=== PATIENT | male | born 1970 | race Caucasian/White ===

== ENCOUNTER → 2018-05-27 09:42 | Outpatient (CLI) | payer BC, SELFPAY | PROVIDERS: Family Provider Family Medicine; PCP Family Medicine; Referring Provider Nurse Practitioner Family; Visit Provider Nurse Practitioner Family | DX: R39.15 Urgency of urination (principal) | CPT/HCPCS: 87077; 87086; 87088; 87186 ==

== ENCOUNTER → 2018-06-17 09:49 | Outpatient (CLI) | payer BC, SELFPAY ==
[2018-06-17 10:46] LABS: Hemoglobin A1c 6.4 % (4.2-6.3)
[2018-06-17 10:51] LABS: Anion Gap 7 (5-15); BUN 12 mg/dL (7-18); BUN/Creat Ratio 12.7 RATIO (10-20); Calcium,Total 8.8 mg/dL (8.5-10.1); Chloride 107 mmol/L (98-107); Cholesterol 164 mg/dL (200); Creatinine, Serum 0.95 mg/dL (0.70-1.30); EST Glomerular Filtration Rate 91 mL/min (>60); Est Glom Filt Rate - Afr Amer 110 mL/min (>60); Glucose 128 mg/dL (74-106); High Density Lipoprotein 27 mg/dL; Potassium 3.7 mmol/L (3.5-5.1); Sodium Level 139 mmol/L (136-145); Triglycerides 256 mg/dL; Very Low Density Lipoprotein 51 mg/dL (5-40)
== END ==
PROVIDERS: Family Provider Family Medicine; PCP Family Medicine; Referring Provider Family Medicine; Visit Provider Family Medicine
DX: R63.1 Polydipsia (principal)
CPT/HCPCS: 36415; 80048; 80061; 83036

== ENCOUNTER 2020-04-01 14:48 | Inpatient (IN) | payer OTHER, SELFPAY ==
[2020-04-01] VITALS (10 sets, daily range): BP systolic 134–163; BP diastolic 76–107; PULSE 106–126; RESP 16–30; TEMP 36.4–39; O2SAT 94–99; BMI 34.7; BMI 34.9; BMI 35.0
--- NOTE | 2020-04-01 15:57 | CT_ITS ---
STUDY: CT ABDOMEN AND PELVIS WITHOUT CONTRAST REASON FOR EXAM: Male, 49 years old. LEFT FLANK PAIN AND IN LT TESTICLE X 1 MONTH RADIATION DOSAGE (If Supplied By Facility): CTDIvol = ( 15.95 ) mGy, DLP = ( 920.77 ) mGycm TECHNIQUE: Transaxial images were obtained from the dome of the diaphragm to the symphysis pubis without oral contrast, and without intravenous contrast. Sagittal and coronal images were reconstructed. Individualized dose optimization techniques were used for this CT. COMPARISON: None. FINDINGS: The visualized lung bases are unremarkable. The visualized portions of the heart are within normal limits. There is decreased attenuation of the liver consistent with steatosis. There is non-visualization of the gallbladder, which may be secondary to either contraction or a prior cholecystectomy. There is mild splenomegaly. Normal pancreas. Normal bilateral adrenal glands. Normal right kidney. 4 cm exophytic cyst in the midsection left kidney. 4 mm obstructing stone of the mid left ureter with mild ureteral dilatation, hydronephrosis, and perinephric edema. Normal visualized stomach. Normal small intestine. Normal colon. There are surgical clips in the region of the appendix consistent with a prior appendectomy. Normal abdominal aorta. Normal inferior vena cava. Normal retroperitoneum. Normal urinary bladder. There is a left-sided inguinal hernia containing adipose tissue. Normal osseous structures. CT/Abdomen/Pelvis without Cont IMPRESSION: 1. 4 mm obstructing stone of the mid left ureter with mild ureteral dilatation and hydronephrosis and perinephric edema. 2. Fatty infiltration liver. 3. Mild splenomegaly. Electronically Signed: Eran Thompson MD at 16:54 EST Tel , Service support ,
--- NOTE | 2020-04-01 15:58 | ED.DCSUM_ITS ---
History of Present Illness Chief Complaint: Flank Pain Informant: Patient Narrative: 49-year-old male presenting with bilateral flank pain and dark urine. Patient states that he has had this for about a year. It comes and goes. He states he drinks a lot of water and urinates a lot but it is still dark. He states it goes right through him. He is not had fever, chills, nausea, vomiting. He does state that he has a focal area of central abdominal tenderness. He states his only medical problem is hypertension. He stopped taking his blood pressure meds because he stated it made him groggy. Past Medical History - Allergies and Home Meds Allergies/Adverse Reactions: Allergies No Known Allergies Allergy (Verified 04/01/20 14:52) Primary Care Physician: Martin Gutierrez MD [Primary Care Provider] - Past Medical History: - - Hypertension Surgical History: noncontributory Lives: Spouse/ Significant Other Smoking Status: Unknown if ever smoked Alcohol: None Drugs: None Review of Systems General: Denies: Chills, Fever, Sweats Eyes: Denies: Visual changes - bilaterally, Diplopia ENT: Denies: Rhinorrhea, Sore throat Cardiovascular: Denies: Chest pain, Palpitations Respiratory: Denies: Dyspnea, Cough, Dyspnea on exertion Gastrointestinal: Reports: Abdominal pain. Denies: Nausea, Vomiting, Diarrhea, Constipation Genitourinary: Reports: Hematuria, Frequency, - - Dark urine. Musculoskeletal: Denies: Myalgias, Arthralgias Skin: Denies: Rash, Abscess Neurological: Denies: Headache, Parasthesia, Numbness Psych: Denies: Depression, Anxiety Endocrine: Reports: Polyuria, Polydipsia Physical Exam Vital Signs/Narrative: Vital Signs Temp Pulse Resp BP Pulse Ox 04/01/20 14:49 97.5 F L 126 H 18 161/107 H 98 General: Obese, No Acute Distress Head: Normocephalic, Atraumatic Eyes: Perrl, EOMI ENT: Moist mucous membranes, No rhinorrhea Cardiovascular: Regular rate, Regular rhythm Respiratory: No distress, CTA bilaterally Abdomen: Soft, Tender - Vasu in the central portion of the abdomen. Abdomen is nonperitoneal. Back: Negative for: CVA tenderness, Spinal tenderness Extremities: Nontender, No edema Skin: Normal color, No rash. Negative for: Cyanosis, Diaphoresis Neurological: Alert, Oriented x3, Cranial nerves II-XII grossly intact Psychological: Normal affect, Normal Mood Diagnostic/Tx/Re-eval Clinical Impression(s) from Imaging Studies Abdomen/Pelvis CT 04/01/20 15:57 IMPRESSION: 1. 4 mm obstructing stone of the mid left ureter with mild ureteral dilatation and hydronephrosis and perinephric edema. 2. Fatty infiltration liver. 3. Mild splenomegaly. Electronically Signed: Eran Thompson MD at 16:54 EST Tel , Service support , Laboratory Data 04/01/20 04/01/20 04/01/20 16:15 16:15 16:15 WBC 19.2 H RBC 4.77 Hgb 14.9 Hct 42.5 MCV 89.1 MCH 31.2 MCHC 35.1 RDW Std Deviation 36.9 RDW Coeff of Akil 11.6 Plt Count 194 MPV 9.6 Immature Gran % (Auto) 0.600 Neut % (Auto) 85.6 H Lymph % (Auto) 6.5 L Jenkins % (Auto) 7.1 Eos % (Auto) 0.0 Baso % (Auto) 0.2 Absolute Neuts (auto) 16.4 H Absolute Lymphs (auto) 1.24 Nucleated RBC % 0 Sodium 135 L Potassium 3.2 L Chloride 101 Carbon Dioxide 25.0 Anion Gap 9 BUN 14 Creatinine 1.35 H Estim Creat Clear Calc 74.25 Est GFR (MDRD) Af Amer 73 Est GFR (MDRD) Non-Af 60 BUN/Creatinine Ratio 10.4 Glucose 157 H Calcium 8.8 Magnesium 1.8 Total Bilirubin 3.80 H AST 9 L ALT 23 Alkaline Phosphatase 64 Total Protein 7.2 Albumin 3.6 Globulin 3.6 Albumin/Globulin Ratio 1.0 Urine Color Urine Clarity Urine pH Ur Specific [place] Urine Protein Urine Glucose (UA) Urine Ketones Urine Occult Blood Urine Nitrite Urine Bilirubin Urine Urobilinogen Ur Leukocyte Esterase Urine RBC Urine WBC Ur Squamous Epith Cells Amorphous Sediment Urine Bacteria Urine Mucus Acetone Level NEGATIVE 04/01/20 16:15 WBC RBC Hgb Hct MCV MCH MCHC RDW Std Deviation RDW Coeff of Akil Plt Count MPV Immature Gran % (Auto) Neut % (Auto) Lymph % (Auto) Jenkins % (Auto) Eos % (Auto) Baso % (Auto) Absolute Neuts (auto) Absolute Lymphs (auto) Nucleated RBC % Sodium Potassium Chloride Carbon Dioxide Anion Gap BUN Creatinine Estim Creat Clear Calc Est GFR (MDRD) Af Amer Est GFR (MDRD) Non-Af BUN/Creatinine Ratio Glucose Calcium Magnesium Total Bilirubin AST ALT Alkaline Phosphatase Total Protein Albumin Globulin Albumin/Globulin Ratio Urine Color Yellow Urine Clarity Cloudy Urine pH 6.0 Ur Specific [place] 1.015 Urine Protein 30 H Urine Glucose (UA) Normal Urine Ketones 15 H Urine Occult Blood 25 H Urine Nitrite Negative Urine Bilirubin 1 H Urine Urobilinogen 4 H Ur Leukocyte Esterase 500 H Urine RBC 0-5 SEEN Urine WBC 50-100 SEEN Ur Squamous Epith Cells 0-5 SEEN Amorphous Sediment 1+ URATE Urine Bacteria 3+ Urine Mucus 0 SEEN Acetone Level - Medical Decision Making Patient presents today with bilateral flank pain and polyuria polydipsia. Patient states that this is been an ongoing problem for a year but is worsened over the last 3 months. Patient states his urine is dark as well. He denies dysuria. Patient today was given IV fluids had lab work drawn which shows a leukocytosis of 20,000. His vitals are stable except for a slight tachycardia. Patient reported a fever from urgent care prior to arrival of 101 ?F however he does not have a fever here and he has not taken anything for pain or fever. Patient's renal function seems to be okay. Urinalysis shows UTI. CT of the abdomen pelvis without contrast shows a 4 mm ureteral stone. Urine was cultured. Patient was given a gram Rocephin in the ED. Patient will be signed out to incoming ED physician who will discuss pt case with Dr. Jang to determine the need for admission versus close follow-up outpatient. Impression: 1. Bilateral flank pain 2. Left ureteral stone 4 mm 3. UTI 4. Leukocytosis ED Disposition - Plan for ED Patient: Referrals: Martin Gutierrez MD [Primary Care Provider] -
[2020-04-01] MEDS: 0.9% Normal Saline 1,000 ML 999 ML IV (16:21)
[2020-04-01 16:24] LABS: Mucous, Urine 0 SEEN /hpf (<or=2+)
[2020-04-01 16:26] LABS: Absolute Lymphocyte Count 1.24 X10^3/uL (0.83-4.51); Absolute Neutrophil Count 16.4 X10^3/uL (2.0-7.7); Basophil# 0.03 X10^3/uL; Basophil% 0.2 % (0-1); Hematocrit 42.5 % (40-54); Hemoglobin 14.9 g/dL (13.0-16.5); Lymphocyte # 1.24 X10^3/ul (4.0); Lymphocyte % 6.5 % (19-41); Mean Corp Hgb Conc 35.1 g/dL (32-36); Mean Corpuscular Hgb 31.2 pg (27.0-32.0); Mean Corpuscular Volume 89.1 fL (80-94); Mean Platelet Vol. 9.6 fl (6.2-12.0); Monocyte# 1.36 X10^3/uL; Monocyte% 7.1 % (0-10); NRBC Flagged by Analyzer 0 % (0-5); Neutrophil # 16.42 X10^3/uL (2.7-7.7); Neutrophil % 85.6 % (47-70); Platelet Count 194 K/mm3 (150-450); RBC Distribution Width CV 11.6 % (11.6-14.6); RBC Distribution Width SD 36.9 fl (35.1-43.9); Red Blood Count 4.77 M/mm3 (4.6-6.2); White Blood Count 19.2 K/mm3 (4.4-11.0)
[2020-04-01 16:33] LABS: Color, Urine Yellow (Yellow); Glucose, Dipstick Normal (Normal); Ketone-Dipstick 15 mg/dl (Negative); Leukocyte Esterase-Dipstick 500 /ul (Negative); Nitrite-Dipstick Negative (Negative); Occult Blood-Urine 25 /ul (Negative); Protein-Dipstick 30 mg/dl (Negative); Specific Gravity, Urine 1.015 (1.002-1.030); Urine Clarity Cloudy (Clear); Urine Urobilinogen 4 mg/dl (Normal)
[2020-04-01 16:50] LABS: AST(SGOT) 9 U/L (15-37); Alanine Aminotransfer ALT/SGPT 23 U/L (16-61); Albumin, Serum 3.6 g/dL (3.2-5.0); Alkaline Phosphatase 64 U/L (45-117); Anion Gap 9 (5-15); BUN 14 mg/dL (7-18); BUN/Creat Ratio 10.4 RATIO (10-20); Calcium,Total 8.8 mg/dL (8.5-10.1); Chloride 101 mmol/L (98-107); Creatinine, Serum 1.35 mg/dL (0.70-1.30); EST Glomerular Filtration Rate 60 mL/min (>60); Est Glom Filt Rate - Afr Amer 73 mL/min (>60); Estimated Creatinine Clearance 74.25 ml/min; Globulin 3.6 g/dL (2.2-4.2); Glucose 157 mg/dL (74-106); Magnesium 1.8 mg/dL (1.6-2.6); Potassium 3.2 mmol/L (3.5-5.1); Protein, Total 7.2 g/dL (6.4-8.2); Sodium Level 135 mmol/L (136-145)
[2020-04-01 17:08] LABS: Urine Bilirubin Dipstick 1 mg/dL (Negative)
[2020-04-01 17:15] LABS: Bacteria 3+ /hpf (None Seen); Red Blood Cells-Urine 0-5 SEEN /hpf (0-5); Squamous Epithelial Cells - UA 0-5 SEEN /hpf (0-5); White Blood Cells 50-100 SEEN /hpf (0-5)
[2020-04-01 17:16] LABS: Amorphous Sediment 1+ URATE
[2020-04-01] MEDS: Ceftriaxone 1 GM/50 ML BAG IV (19:24)
[2020-04-01 19:37] LABS: Lactic Acid 1.5 mmol/L (0.4-1.9)
--- NOTE | 2020-04-01 20:43 | HP.PCM_ITS ---
Problem List (1) Uncontrolled hypertension Status: Acute (2) Acute kidney injury Status: Acute (3) UTI (urinary tract infection) Status: Acute Qualifiers: Urinary tract infection type: site unspecified Hematuria presence: without hematuria Qualified Code(s): N39.0 - Urinary tract infection, site not specified (4) Kidney stone Status: Acute (5) Hypokalemia Status: Acute (6) Hypomagnesemia Status: Acute (7) Hyponatremia Status: Acute (8) Hypertension Status: Chronic Qualifiers: Hypertension type: essential hypertension Qualified Code(s): I10 - Essential (primary) hypertension History of Present Illness Date of Admission: 04/01/20 Chief Complaint: Fever, abdominal pain, flank pain - 3 days The patient is a 49 year old M with past medical history of hypertension, noncompliant with medications comes in with complaints of bilateral flank pain, fever and dark urine. Patient gives a story of having bilateral flank pain ongoing for about 2 years. It comes and goes. His urine has remained dark. He has been persistently drinking water but feels 'it goes right through him'. In the last 3 days, he has had persistent abdominal discomfort, worse in the left upper quadrant, involvement of bilateral flanks. He has some subjective fever, no nausea or vomiting or diarrhea. He describes his pain as dull, constant, with. Of waxing and waning but not completely gone. He denies any radiation of the pain. He denies any aggravating or relieving factors. Vitals in the ED showed temperature of 97.5F, heart rate 126, blood pressure 161/107, respiratory rate was 18, SPO2 was 98% on room air. WBC count is 19.2, hemoglobin of 14.9, platelet count 194, sodium 135, potassium 3.2, chloride 101, bicarbonate 25, BUN 14, creatinine 1.35, baseline creatinine 0.95, lactic acid 1.5, magnesium 1.8. UA is cloudy, ketones 15, occult blood 25, leukocyte Estrace 500, WBC count 50-100, 3+ bacteria. Acetone negative. CT of the abdomen and pelvis shows a 4 mm obstructing stone of the mid left ureter with mild ureteral dilatation hydronephrosis and perinephric edema, fatty infiltration of the liver, mild splenomegaly. Past Medical History Past Medical History (Chronic Problems): Chronic Problems Hypertension (Chronic) Allergies No Known Allergies Allergy (Verified 04/01/20 14:52) Home Medications: Ambulatory Orders Medication Instructions Recorded NK 04/01/20 Surgical History: appendectomy, cholecystectomy, herniorrhaphy - left inguinal Psychiatric History: No pertinent psych hx Lives: Spouse/ Significant Other Smoking Status: Unknown if ever smoked Tobacco Use: Non-smoker Alcohol: None Drugs: None - *Family History Maternal History Items: Unknown Paternal History Items: Unknown Review of Systems Constitutional: Reports: Chills, Fever, Malaise, Weakness, Fatigue. Denies: N ight Sweats, Weight Change Eyes: Denies: Blurred vision, Cataracts, Conjunctivae Inflammation, Double vision, Pain, Redness, Vision Change HEENT: Denies: Difficulty Hearing, Difficulty Swallowing, Head Aches, Hearing Changes, Sinus Congestion, Sinus Drainage Cardiovascular: Denies: Chest Pain, Claudication, Orthopnea, Palpitations, Paroxysmal Noc. Dyspnea Respiratory: Denies: Cough, Hemoptysis, Shortness of breath at rest, Shortness of breath upon exertion, Sputum production Gastrointestinal: Reports: Abdominal Pain. Denies: Constipation, Diarrhea, Dyspepsia, Hematemesis, Hematochezia, Nausea, Vomiting Genitourinary: Reports: Dysuria, Frequency. Denies: Incontinence, Nocturia, Urgency Musculoskeletal: Denies: Joint Pain, Joint stiffness, Joint swelling, Joint Tenderness Skin: Denies: Rash, Wounds Neurological: Denies: Numbness, Tingling, Focal weakness Psychiatric: Denies: Anxiety, Depression, Homicidal Ideations, Suicidal Ideations Hematologic/ Lymphatic: Denies: Easy Bruising, Easy Bleeding VTE Information - Inpt Only VTE Present on Admission: No VTE Pharm Prophylaxis ordered?: Yes Patient Problems: Active and Suspected Problems Uncontrolled hypertension (Acute) Acute kidney injury (Acute) UTI (urinary tract infection) (Acute) Kidney stone (Acute) Hypokalemia (Acute) Hypomagnesemia (Acute) Hyponatremia (Acute) - Physical Exam Vitals/I&O's: Vital Signs Temp Pulse Resp BP Pulse Ox 100.5 F H 119 H 20 H 163/99 H 97 04/01/20 20:00 04/01/20 20:00 04/01/20 20:00 04/01/20 20:00 04/01/20 20:00 Oxygen Delivery Method Room Air Weight: 116.12 kg Body Mass Index (BMI) 34.7 Finger Stick Blood Glucose 170 Intake and Output for Last 24 Hours 03/30/20 03/31/20 04/01/20 23:59 23:59 23:59 Intake Total 999 / 999 Balance 999 / 999 General: Alert, Oriented x3, Cooperative, - - In mild distress HEENT: Atraumatic, PERRLA, EOMI, Normocephalic Oral: Dry Mucosa Neck: Supple Lungs: Clear to auscultation, Normal air movement Cardiovascular: Regular rate, Regular Rhythm, Normal S1, Normal S2, Tachycardic Abdomen: Bowel Sounds Present, Soft, Non-Distended, No Hepato-splenomegaly, Hypoactive Bowel Sounds, Tender - Over the bilateral flank region, worse in the left upper quadrant Extremities: No edema Skin: No rashes Musculoskeletal: No Tenderness to Palpation of Joints or Extremities Lymphatic: No Cervical, Supraclavicular, or Inguinal Adenopathy Neurological: Cranial nerves II-XII grossly intact, Neuro grossly intact Psych/Mental Status: Normal Affect, Appropriate Laboratory Results 04/01/20 16:15: WBC 19.2 H, RBC 4.77, Hgb 14.9, Hct 42.5, MCV 89.1, MCH 31.2, M CHC 35.1, RDW Std Deviation 36.9, RDW Coeff of Akil 11.6, Plt Count 194, MPV 9.6, Immature Gran % (Auto) 0.600, Neut % (Auto) 85.6 H, Lymph % (Auto) 6.5 L, Wheeler % (Auto) 7.1, Eos % (Auto) 0.0, Baso % (Auto) 0.2, Absolute Neuts (auto) 16.4 H, Absolute Lymphs (auto) 1.24, Nucleated RBC % 0 04/01/20 16:15: Sodium 135 L, Potassium 3.2 L, Chloride 101, Carbon Dioxide 25.0, Anion Gap 9, BUN 14, Creatinine 1.35 H, Estim Creat Clear Calc 74.25, Est GFR (MDRD) Af Amer 73, Est GFR (MDRD) Non-Af 60, BUN/Creatinine Ratio 10.4, Glucose 157 H, Calcium 8.8, Magnesium 1.8, Total Bilirubin 3.80 H, AST 9 L, ALT 23, Alkaline Phosphatase 64, Total Protein 7.2, Albumin 3.6, Globulin 3.6, Albumin/Globulin Ratio 1.0 04/01/20 16:15: Acetone Level NEGATIVE 04/01/20 16:15: Urine Color Yellow, Urine Clarity Cloudy, Urine pH 6.0, Ur Specific [place] 1.015, Urine Protein 30 H, Urine Glucose (UA) Normal, Urine Ketones 15 H, Urine Occult Blood 25 H, Urine Nitrite Negative, Urine Bilirubin 1 H, Urine Urobilinogen 4 H, Ur Leukocyte Esterase 500 H, Urine RBC 0-5 SEEN, Urine WBC 50-100 SEEN, Ur Squamous Epith Cells 0-5 SEEN, Amorphous Sediment 1+ URATE, Urine Bacteria 3+, Urine Mucus 0 SEEN 04/01/20 18:50: Lactic Acid 1.5 Current Medications Sodium Chloride () 1,000 mls @ 150 mls/hr IV .Q6H40M [facility] Assessment/Plan All Active Problems Uncontrolled hypertension (Acute) Acute kidney injury (Acute) UTI (urinary tract infection) (Acute) Kidney stone (Acute) Hypokalemia (Acute) Hypomagnesemia (Acute) Hyponatremia (Acute) 1. Severe sepsis secondary to acute complicated UTI(patient with fever, tachycardia, leukocytosis, RAYMOND) Started on IV fluids and IV ceftriaxone Blood and urine cultures pending We will continue same 2. Acute kidney stone, likely infected, seen on CT of the abdomen and pelvis Left 4 mm obstructing stone of the mid left ureter with mild ureteric dilatation/hydronephrosis/perinephric edema Urology consulted from the ED Continue with pain medications 3. Acute kidney injury, post renal from obstructing stone Baseline creatinine less than 1, admitted creatinine 1.35 On IV fluids, urology consulted 4. Hypertension, noncompliant with medications, blood pressure elevated. This is also being confounded by pain We will continue to monitor blood pressures, hydralazine as needed 5. Hypokalemia/hyponatremia/hypomagnesemia secondary to dehydration, renal losses Replace, recheck in a.m. 6. Elevated total bilirubin, AST, ALT, ALP unremarkable CT of the abdomen and pelvis shows fatty liver Abdominal ultrasound ordered, follow-up on repeat liver function test 7. DVT prophylaxis?low risk, early ambulation recommended Inpatient E&M: [id number] In Hosp L3
[2020-04-01] MEDS: 0.9% Normal Saline 1,000 ML 150 ML IV (21:08)
--- NOTE | 2020-04-01 22:07 | US_ITS ---
STUDY: ABDOMINAL ULTRASOUND - RIGHT UPPER QUADRANT REASON FOR VISIT: Male, 49 years old elevated liver enzymes. TECHNIQUE: Ultrasound evaluation of the right upper quadrant was performed with real-time and static lorenzana-scale imaging. TECHNICAL QUALITY: Adequate. COMPARISON: April 01, 2020. FINDINGS: Liver: The liver measures 18.8 cm. There is increased echogenicity consistent with fatty infiltration. The bile ducts are within normal limits. There is hepatic color flow. The direction of portal flow is hepatopetal. There is no demonstrated mass lesion. Gallbladder not visualized compatible with cholecystectomy. Common Bile Duct (C.B.D.): The common bile duct measures 7 mm. Common bile duct diameter normal for a patient status post cholecystectomy. Pancreas not well-visualized due to overlying bowel gas. Right Kidney: Normal size of the right kidney. The right kidney measures 14.1 cm. Normal renal cortex. The right cortex measures 2.2 cm. There is no demonstrated renal mass or cyst. There is no right hydronephrosis. US/Abdomen Limited IMPRESSION: Fatty liver. Status post cholecystectomy. Electronically Signed: Jorge Chao MD at 6:50 EST , Service support ,
[2020-04-01] MEDS: Acetaminophen 325 MG Tablet 650 MG PO (22:54)
[2020-04-02] VITALS (18 sets, daily range): BP systolic 142–183; BP diastolic 89–111; PULSE 96–120; RESP 18–20; TEMP 36.4–38.4; O2SAT 93–99; BMI 34.9
[2020-04-02] MEDS: hydrALAZINE 20 MG/ML Vial 5 MG IV (04:51)
[2020-04-02] MEDS: Acetaminophen 325 MG Tablet 650 MG PO (04:56)
[2020-04-02] MEDS: 0.9% Normal Saline 1,000 ML 150 ML IV ×3 (06:26→21:47)
[2020-04-02] MEDS: Morphine 2 MG/ML Syringe IV (06:32)
[2020-04-02 06:33] LABS: Absolute Lymphocyte Count 0.85 X10^3/uL (0.83-4.51); Absolute Neutrophil Count 13.1 X10^3/uL (2.0-7.7); Basophil# 0.02 X10^3/uL; Basophil% 0.1 % (0-1); Hemoglobin 14.6 g/dL (13.0-16.5); Lymphocyte # 0.85 X10^3/ul (4.0); Lymphocyte % 5.6 % (19-41); Mean Corp Hgb Conc 34.8 g/dL (32-36); Mean Corpuscular Volume 89.2 fL (80-94); Mean Platelet Vol. 9.4 fl (6.2-12.0); Monocyte# 1.09 X10^3/uL; Monocyte% 7.2 % (0-10); NRBC Flagged by Analyzer 0 % (0-5); Neutrophil # 13.14 X10^3/uL (2.7-7.7); Neutrophil % 86.6 % (47-70); Platelet Count 148 K/mm3 (150-450); RBC Distribution Width CV 11.8 % (11.6-14.6); RBC Distribution Width SD 38.3 fl (35.1-43.9); Red Blood Count 4.71 M/mm3 (4.6-6.2); White Blood Count 15.2 K/mm3 (4.4-11.0)
[2020-04-02 06:59] LABS: ALB/GLOB Ratio 0.9 RATIO (0.9-2.4); AST(SGOT) 6 U/L (15-37); Alanine Aminotransfer ALT/SGPT 18 U/L (16-61); Albumin, Serum 2.9 g/dL (3.2-5.0); Alkaline Phosphatase 59 U/L (45-117); Anion Gap 5 (5-15); BUN 11 mg/dL (7-18); BUN/Creat Ratio 10.5 RATIO (10-20); Calcium,Total 8.2 mg/dL (8.5-10.1); Chloride 109 mmol/L (98-107); Creatinine, Serum 1.05 mg/dL (0.70-1.30); EST Glomerular Filtration Rate 80 mL/min (>60); Est Glom Filt Rate - Afr Amer 97 mL/min (>60); Estimated Creatinine Clearance 95.46 ml/min; Globulin 3.4 g/dL (2.2-4.2); Glucose 149 mg/dL (74-106); Magnesium 2.4 mg/dL (1.6-2.6); Potassium 3.5 mmol/L (3.5-5.1); Protein, Total 6.3 g/dL (6.4-8.2); Sodium Level 138 mmol/L (136-145)
--- NOTE | 2020-04-02 07:22 | PCM.CONS.U ---
Problem List (1) Kidney stone Status: Acute Reason for Consult Date of Consultation: 04/02/20 Reason for Consultation: infected stone History of Present Illness: The patient is a 49 year old Male with infected left ureteral calculi Past Medical History Past Medical History (Chronic Problems): Chronic Problems Hypertension (Chronic) Allergies No Known Allergies Allergy (Verified 04/01/20 14:52) Home Medications: Ambulatory Orders Medication Instructions Recorded NK 04/01/20 Surgical History: appendectomy, cholecystectomy, herniorrhaphy - left inguinal Psychiatric History: No pertinent psych hx Lives: Spouse/ Significant Other Smoking Status: Never smoker Tobacco Use: Non-smoker Alcohol: None Drugs: None - *Family History Maternal History Items: Unknown Paternal History Items: Unknown Review of Systems Constitutional: Denies: Chills, Fever, Weight Change HEENT: Denies: Head Aches, Sinus Congestion, Sinus Drainage Cardiovascular: Denies: Chest Pain, Palpitations Respiratory: Denies: Cough, Shortness of breath at rest, Sputum production Gastrointestinal: Denies: Abdominal Pain, Nausea, Vomiting Genitourinary: Denies: Dysuria Musculoskeletal: Denies: Joint Pain, Joint Tenderness Skin: Denies: Rash, Wounds Neurological: Denies: Numbness, Tingling, Focal weakness Psychiatric: Denies: Anxiety, Depression, Homicidal Ideations, Suicidal Ideations Hematologic/ Lymphatic: Denies: Easy Bruising, Easy Bleeding Physical Exam - Physical Exam Vital Signs Temp 99.1 F 04/02/20 04:51 Pulse 115 H 04/02/20 06:28 Resp 18 04/02/20 04:51 BP 158/93 H 04/02/20 06:28 Pulse Ox 95 04/02/20 04:51 Intake & Output 03/31/20 04/01/20 04/02/20 23:59 23:59 23:59 Intake Total 1050 / 1200 2654 / 2654 Balance 1050 / 1200 2654 / 2654 Weight: 117 kg 117 kg Intake: Oral 1550 / 1550 Intake, IV Amount 1050 / 1050 1104 / 1104 0.9% Normal Saline 1,000 ML @ 1000 / 1000 150 mls/hr IV .Q6H40M [facility] Rx#: [id number] 0.9% Normal Saline 1,000 ML @ 1000 / 1000 999 mls/hr IV .Q1H1M [facility] Rx#: [id number] Magnesium Sulfate 2 GM In 0.9% 104 / 104 Normal Saline 100 ML @ 52 mls/ hr IV X1 ONE Rx#:[id number] Rocephin 1 gm In 50 ml @ 100 50 / 50 mls/hr IV X1 ONE Rx#:[id number] Other: Incontinent Amount Moderate Incontinent Amount Urine #2 Large General: Alert, Oriented x3 HEENT: Atraumatic Oral: Moist Mucosa Neck: Supple Lungs: Normal air movement Cardiovascular: Regular rate Abdomen: Soft Microbiology Past 72 Hours 04/01/20 18:50 Blood Culture - Preliminary Blood Culture (Wb) - Anticubital Right 04/01/20 23:35 SARS-CoV-2 Antigen (Rapid) - Final Mucosa - Nose Laboratory Tests Past 24 Hrs 04/01/20 04/01/20 04/01/20 16:15 16:15 16:15 WBC 19.2 H RBC 4.77 Hgb 14.9 Hct 42.5 MCV 89.1 MCH 31.2 MCHC 35.1 RDW Std Deviation 36.9 RDW Coeff of Akil 11.6 Plt Count 194 MPV 9.6 Immature Gran % (Auto) 0.600 Neut % (Auto) 85.6 H Lymph % (Auto) 6.5 L [place] % (Auto) 7.1 Eos % (Auto) 0.0 Baso % (Auto) 0.2 Absolute Neuts (auto) 16.4 H Absolute Lymphs (auto) 1.24 Nucleated RBC % 0 Sodium 135 L Potassium 3.2 L Chloride 101 Carbon Dioxide 25.0 Anion Gap 9 BUN 14 Creatinine 1.35 H Estim Creat Clear Calc 74.25 Est GFR (MDRD) Af Amer 73 Est GFR (MDRD) Non-Af 60 BUN/Creatinine Ratio 10.4 Glucose 157 H Lactic Acid Calcium 8.8 Magnesium 1.8 Total Bilirubin 3.80 H AST 9 L ALT 23 Alkaline Phosphatase 64 Total Protein 7.2 Albumin 3.6 Globulin 3.6 Albumin/Globulin Ratio 1.0 Urine Color Urine Clarity Urine pH Ur Specific [place] Urine Protein Urine Glucose (UA) Urine Ketones Urine Occult Blood Urine Nitrite Urine Bilirubin Urine Urobilinogen Ur Leukocyte Esterase Urine RBC Urine WBC Ur Squamous Epith Cells Amorphous Sediment Urine Bacteria Urine Mucus Acetone Level NEGATIVE 04/01/20 04/01/20 04/02/20 16:15 18:50 06:23 WBC 15.2 H RBC 4.71 Hgb 14.6 Hct 42.0 MCV 89.2 MCH 31.0 MCHC 34.8 RDW Std Deviation 38.3 RDW Coeff of Akil 11.8 Plt Count 148 L MPV 9.4 Immature Gran % (Auto) 0.500 Neut % (Auto) 86.6 H Lymph % (Auto) 5.6 L [place] % (Auto) 7.2 Eos % (Auto) 0.0 Baso % (Auto) 0.1 Absolute Neuts (auto) 13.1 H Absolute Lymphs (auto) 0.85 Nucleated RBC % 0 Sodium Potassium Chloride Carbon Dioxide Anion Gap BUN Creatinine Estim Creat Clear Calc Est GFR (MDRD) Af Amer Est GFR (MDRD) Non-Af BUN/Creatinine Ratio Glucose Lactic Acid 1.5 Calcium Magnesium Total Bilirubin AST ALT Alkaline Phosphatase Total Protein Albumin Globulin Albumin/Globulin Ratio Urine Color Yellow Urine Clarity Cloudy Urine pH 6.0 Ur Specific [place] 1.015 Urine Protein 30 H Urine Glucose (UA) Normal Urine Ketones 15 H Urine Occult Blood 25 H Urine Nitrite Negative Urine Bilirubin 1 H Urine Urobilinogen 4 H Ur Leukocyte Esterase 500 H Urine RBC 0-5 SEEN Urine WBC 50-100 SEEN Ur Squamous Epith Cells 0-5 SEEN Amorphous Sediment 1+ URATE Urine Bacteria 3+ Urine Mucus 0 SEEN Acetone Level 04/02/20 06:23 WBC RBC Hgb Hct MCV MCH MCHC RDW Std Deviation RDW Coeff of Akil Plt Count MPV Immature Gran % (Auto) Neut % (Auto) Lymph % (Auto) [place] % (Auto) Eos % (Auto) Baso % (Auto) Absolute Neuts (auto) Absolute Lymphs (auto) Nucleated RBC % Sodium 138 Potassium 3.5 Chloride 109 H Carbon Dioxide 24.0 Anion Gap 5 BUN 11 Creatinine 1.05 Estim Creat Clear Calc 95.46 Est GFR (MDRD) Af Amer 97 Est GFR (MDRD) Non-Af 80 BUN/Creatinine Ratio 10.5 Glucose 149 H Lactic Acid Calcium 8.2 L Magnesium 2.4 Total Bilirubin 2.30 H AST 6 L ALT 18 Alkaline Phosphatase 59 Total Protein 6.3 L Albumin 2.9 L Globulin 3.4 Albumin/Globulin Ratio 0.9 Urine Color Urine Clarity Urine pH Ur Specific [place] Urine Protein Urine Glucose (UA) Urine Ketones Urine Occult Blood Urine Nitrite Urine Bilirubin Urine Urobilinogen Ur Leukocyte Esterase Urine RBC Urine WBC Ur Squamous Epith Cells Amorphous Sediment Urine Bacteria Urine Mucus Acetone Level Assessment/Plan All Active Problems Uncontrolled hypertension (Acute) Acute kidney injury (Acute) UTI (urinary tract infection) (Acute) Kidney stone (Acute) Hypokalemia (Acute) Hypomagnesemia (Acute) Hyponatremia (Acute) plan for cysto and left stent npo, consent
--- NOTE | 2020-04-02 07:52 | EKG12_ITS ---
Test Reason : PRE OP Blood Pressure : / mmHG Vent. Rate : 108 BPM Atrial Rate : 108 BPM P-R Int : 154 ms QRS Dur : 094 ms QT Int : 322 ms P-R-T Axes : 045 021 016 degrees QTc Int : 431 ms Sinus tachycardia Otherwise normal ECG No previous ECGs available Confirmed by AVELINA KAN, MILAD ([id number]), brands editor MAGDA COY ([id number]) on 04/03/2020 10:47:21 AM Referred By: VIVIANE Confirmed By:MILAD QUAN MD
[2020-04-02] MEDS: 0.9% Normal Saline 1,000 ML 999 ML IV (10:04)
--- NOTE | 2020-04-02 10:05 | CASEMGMT ---
RN DECLAN Face to Face with patient for initial transition planning/care coordination assessment. RN CM introduced self and role at [facility]. Patient lying in bed, alert and oriented. Patient willing to participate in assessment and is able to answer all questions appropriately. Care providers, pharmacy, and demographics verified. Patient wishes to discharge home, denies need for home health at this time. Patient states he has no further needs or concerns at this time. CM to follow for discharge planning needs that may arise. PCP: Matt Specialists: none Preferred Pharmacy: [facility] Insurance: self pay Prescription Benefit: self pay Living Will/HPOA: none LNOK: Living Arrangements: Patient lives with in a 2 story home with bed and bath on first floor. Patient is independent and able to ambulate stairs. Transportation: self/ DME/HHC: Patient denies DME or previous HHC. Disposition Plan: Patient to discharge home with family support and follow-up plans in place. Faith ZAFAR, RN, CM
--- NOTE | 2020-04-02 12:59 | NURSING ---
off unit to OR at this time.
[2020-04-02] MEDS: Lactated Ringers 1,000 ML 999 ML IV (13:50)
[2020-04-02] MEDS: Lactated Ringers 1,000 ML 100 ML IV (14:00)
--- NOTE | 2020-04-02 14:02 | OP.PCM_ITS ---
Problem List (1) Kidney stone Status: Acute Report of Operation Date of Procedure: 04/02/20 Pre-Operative Diagnosis: Left obstructing ureteral calculi, urosepsis Post-Operative Diagnosis: Same Surgery/Procedure Performed:: Cystoscopy and left stent placement Description of Surgical Findings:: Patient was taken back to the operating room after induction of general anesthesia, the patient was placed in dorsolithotomy position. The urethra and genitals were prepped and draped in usual sterile fashion. Using a 21 Gib[place] rigid cystourethroscope the entire length of the urethra was normal then went into the bladder. Identified the trigone the left and right ureteral orifice. I then cannulated the left ureter orifice and advanced a wire up into the kidney. I then backloaded a 5 Gib[place]tarian open ended catheter over the wire and injected contrast to delineate the anatomy. After the retrograde was performed I then used fluoroscopic images and guidance to advanced a wire up into the kidney and over the 0.038 glidewire I advanced a 6 Gib[place]tarian by 26 cm double pigtail stent. The stent had a string on it but cut it very short to prevent extraction. I then pulled the 0.038 Glidewire off and the stent coiled in the kidney bladder good position. The bladder was then drained. We confirmed the position of the stent by fluoroscopy. Patient anesthetic was reversed and was taken back to the PACU in good condition. Type of Anesthesia:: General - Admit VTE Documentation VTE Present on Admission: No VTE Mechan Device Prophylaxis: SCD's
[2020-04-02] MEDS: Lubricating Jelly 60 GM Tube 30 GM TOPICAL (14:10)
[2020-04-02] MEDS: Lidocaine Jelly 2% 20 ML Syringe (URO-JET) 20 APPLIC (14:10)
--- NOTE | 2020-04-02 19:03 | PN_ITS ---
Patient Problems: Active and Suspected Problems Uncontrolled hypertension (Acute) Acute kidney injury (Acute) UTI (urinary tract infection) (Acute) Kidney stone (Acute) Hypokalemia (Acute) Hypomagnesemia (Acute) Hyponatremia (Acute) Subjective: Patient was seen and examined today, he was seen before he went to surgery today for cystoscopy and left stent placement. Patient has no complaints of any shortness of breath or chest discomfort at this time, he appeared stable for surgery. - Physical Exam Vitals/I&O's: Vital Signs Temp Pulse Resp BP Pulse Ox 98.4 F 110 H 18 152/104 H 95 04/02/20 16:07 04/02/20 16:07 04/02/20 16:07 04/02/20 16:07 04/02/20 16:07 Oxygen Delivery Method Room Air Weight: 117 kg Body Mass Index (BMI) 34.9 Finger Stick Blood Glucose 170 Intake and Output for Last 24 Hours 03/31/20 04/01/20 04/02/20 23:59 23:59 23:59 Intake Total 1050 / 1200 7094.0 / 7094.0 Balance 1050 / 1200 7094.0 / 7094.0 General: Alert, Oriented x3, Cooperative, No apparent distress, Well developed HEENT: Atraumatic, PERRLA, EOMI, Normocephalic Oral: Moist Mucosa Neck: Supple, No JVD, Negative Carotid Bruits, Trachea Midline, Thyroid Normal Size and Texture Lungs: Clear to auscultation, Normal air movement, No rhonchi, No wheeze Cardiovascular: Regular rate, Regular Rhythm, Normal S1, Normal S2, No murmurs, PMI Normal, No rub noted, No Gallop Abdomen: Bowel Sounds Present, Soft, Non Tender, Non-Distended Extremities: No clubbing, No cyanosis, No edema, Capillary Refill Less than 3 Seconds Skin: No rashes, No breakdown Musculoskeletal: No Tenderness to Palpation of Joints or Extremities Neurological: Cranial nerves II-XII grossly intact, Neuro grossly intact, Sensory exam intact to light touch and pain Psych/Mental Status: Normal Affect, Appropriate, Alert and oriented to time, place, person, mood and affect Microbiology Past 72 Hours 04/01/20 16:00 Urine, Clean Catch Urine Culture - Preliminary Presumptive E. coli 04/01/20 18:50 Blood Culture (Wb) - Anticubital Right Blood Culture - Preliminary 04/01/20 23:35 Mucosa - Nose SARS-CoV-2 Antigen (Rapid) - Final Laboratory Results 04/01/20 18:50: Lactic Acid 1.5 04/02/20 06:23: WBC 15.2 H, RBC 4.71, Hgb 14.6, Hct 42.0, MCV 89.2, MCH 31.0, MCHC 34.8, RDW Std Deviation 38.3, RDW Coeff of Akil 11.8, Plt Count 148 L, MPV 9.4, Immature Gran % (Auto) 0.500, Neut % (Auto) 86.6 H, Lymph % (Auto) 5.6 L, [place] % (Auto) 7.2, Eos % (Auto) 0.0, Baso % (Auto) 0.1, Absolute Neuts (auto) 13.1 H, Absolute Lymphs (auto) 0.85, Nucleated RBC % 0 04/02/20 06:23: Sodium 138, Potassium 3.5, Chloride 109 H, Carbon Dioxide 24.0, Anion Gap 5, BUN 11, Creatinine 1.05, Estim Creat Clear Calc 95.46, Est GFR (MDRD) Af Amer 97, Est GFR (MDRD) Non-Af 80, BUN/Creatinine Ratio 10.5, Glucose 149 H, Calcium 8.2 L, Magnesium 2.4, Total Bilirubin 2.30 H, AST 6 L, ALT 18, Alkaline Phosphatase 59, Total Protein 6.3 L, Albumin 2.9 L, Globulin 3.4, Albumin/Globulin Ratio 0.9 Current Medications Acetaminophen (Acetaminophen 325 Mg Tablet) 650 mg PO Q6H PRN PRN PRN Reason: Pain Score 1-10/Temp > 100.7 F Last Admin: 04/02/20 04:56 Dose: 650 mg Documented by: Al Hydroxide/Mg Hydroxide (Mag Hydrox/Al Hydrox/Simeth 30 Ml Udc) 30 ml PO Q6H PRN PRN PRN Reason: Gastric Burning Hydralazine HCl (Hydralazine 20 Mg/Ml Vial) 5 mg IV Q6H PRN PRN PRN Reason: BLOOD PRESSURE Last Admin: 04/02/20 04:51 Dose: 5 mg Documented by: Sodium Chloride () 1,000 mls @ 150 mls/hr IV .Q6H40M [facility] Last Admin: 04/02/20 15:21 Dose: 150 mls/hr Documented by: Ceftriaxone Sodium (Rocephin) 1 gm in 50 mls @ 100 mls/hr IV Q24H [facility] Sodium Chloride () 250 mls @ 15 mls/hr IV .[id number] PRN PRN Reason: Saline Flush Sodium Chloride () 250 mls @ 15 mls/hr IV .[id number] PRN PRN Reason: Additional IVPB Infusion Morphine Sulfate (Morphine 2 Mg/Ml Syringe) 2 mg IV Q3H PRN PRN PRN Reason: Pain Score 6-10 Last Admin: 04/02/20 06:32 Dose: 2 mg Documented by: Ondansetron HCl (Ondansetron 4 Mg/2 Ml Vial) 4 mg IV Q8H PRN PRN PRN Reason: NAUSEA/VOMITING Oxycodone HCl (Oxycodone 5 Mg Tablet) 5 mg PO Q4H PRN PRN PRN Reason: Pain Score 4-5 Sodium Chloride (0.9% Saline Lock 10 Ml Syringe) 10 - 40 ml IV UD PRN PRN Reason: SALINE FLUSH Medical Necessity - Tobacco Use Smoking Status: Never smoker Tobacco Use: Non-smoker Assessment/Plan All Active Problems Uncontrolled hypertension (Acute) Acute kidney injury (Acute) UTI (urinary tract infection) (Acute) Kidney stone (Acute) Hypokalemia (Acute) Hypomagnesemia (Acute) Hyponatremia (Acute) #1 severe sepsis secondary to acute pyelonephritis with E. coli-patient will remain on Rocephin #2 hypokalemia-corrected at this time #3 left ureteral stone-again a left ureteral stent was placed today by urology #4 acute kidney injury-continue fluids #5 essential hypertension-will place the patient on amlodipine #6 elevated bilirubin-possibly secondary to severe sepsis #7 fatty liver Inpatient E&M: [id number] [facility] Hosp L2
[2020-04-02] MEDS: amLODIPine 5 MG Tablet PO (20:09)
[2020-04-02] MEDS: Ceftriaxone 1 GM/50 ML BAG IV (21:47)
[2020-04-03 02:30] VITALS: BP 153/96; PULSE 105; RESP 18; TEMP 37.4; O2SAT 97
[2020-04-03] MEDS: 0.9% Normal Saline 1,000 ML 150 ML IV (04:43)
--- NOTE | 2020-04-03 07:24 | PCM.PROGNOTE ---
Patient Problems: Active and Suspected Problems Uncontrolled hypertension (Acute) Acute kidney injury (Acute) UTI (urinary tract infection) (Acute) Kidney stone (Acute) Hypokalemia (Acute) Hypomagnesemia (Acute) Hyponatremia (Acute) Subjective: Status post stent placement on the left side for obstructing stone and sepsis - Physical Exam Vitals/I&O's: Vital Signs Temp Pulse Resp BP Pulse Ox 99.3 F H 105 H 18 153/96 H 97 04/03/20 02:30 04/03/20 02:30 04/03/20 02:30 04/03/20 02:30 04/03/20 02:30 Oxygen Delivery Method Room Air Weight: 119 kg Body Mass Index (BMI) 34.9 Finger Stick Blood Glucose 170 Intake and Output for Last 24 Hours 04/01/20 04/02/20 04/03/20 23:59 23:59 23:59 Intake Total 1050 / 1200 8111.5 / 8911.5 2165 / 2165 Balance 1050 / 1200 8111.5 / 8911.5 2165 / 2165 General: Alert, Oriented x3, Cooperative HEENT: Atraumatic, PERRLA, EOMI, Normocephalic Neck: Supple, No JVD, Negative Carotid Bruits Lungs: Clear to auscultation, Normal air movement Cardiovascular: Regular rate, No murmurs Abdomen: Bowel Sounds Present, Soft, Non Tender Extremities: No edema, Capillary Refill Less than 3 Seconds Skin: No rashes, No breakdown Musculoskeletal: No Tenderness to Palpation of Joints or Extremities Neurological: Cranial nerves II-XII grossly intact Psych/Mental Status: Normal Affect, Appropriate Microbiology Past 72 Hours 04/01/20 16:00 Urine, Clean Catch Urine Culture - Preliminary Presumptive E. coli 04/01/20 18:50 Blood Culture (Wb) - Anticubital Right Blood Culture - Preliminary 04/01/20 23:35 Mucosa - Nose SARS-CoV-2 Antigen (Rapid) - Final Laboratory Results 04/03/20 07:00: WBC Pending, RBC Pending, Hgb Pending, Hct Pending, MCV Pending, MCH Pending, MCHC Pending, RDW Std Deviation Pending, RDW Coeff of Akil Pending, Plt Count Pending, Neut % (Auto) Pending, Absolute Neuts (auto) Pending 04/03/20 07:10: Sodium Pending, Potassium Pending, Chloride Pending, Carbon Dioxide Pending, Anion Gap Pending, BUN Pending, Creatinine Pending, Est GFR (MDRD) Af Amer Pending, Est GFR (MDRD) Non-Af Pending, BUN/Creatinine Ratio Pending, Glucose Pending, Calcium Pending, Total Bilirubin Pending, AST Pending, ALT Pending, Alkaline Phosphatase Pending, Total Protein Pending, Albumin Pending Current Medications Acetaminophen (Acetaminophen 325 Mg Tablet) 650 mg PO Q6H PRN PRN PRN Reason: Pain Score 1-10/Temp > 100.7 F Last Admin: 04/02/20 04:56 Dose: 650 mg Documented by: Al Hydroxide/Mg Hydroxide (Mag Hydrox/Al Hydrox/Simeth 30 Ml Udc) 30 ml PO Q6H PRN PRN PRN Reason: Gastric Burning Amlodipine Besylate (Amlodipine 5 Mg Tablet) 5 mg PO DAILY [facility] Hydralazine HCl (Hydralazine 20 Mg/Ml Vial) 5 mg IV Q6H PRN PRN PRN Reason: BLOOD PRESSURE Last Admin: 04/02/20 04:51 Dose: 5 mg Documented by: Sodium Chloride () 1,000 mls @ 150 mls/hr IV .Q6H40M [facility] Last Admin: 04/03/20 04:43 Dose: 150 mls/hr Documented by: Ceftriaxone Sodium (Rocephin) 1 gm in 50 mls @ 100 mls/hr IV Q24H [facility] Last Infusion: 04/02/20 22:17 Dose: Infused Documented by: Sodium Chloride () 250 mls @ 15 mls/hr IV .[id number] PRN PRN Reason: Saline Flush Sodium Chloride () 250 mls @ 15 mls/hr IV .Q24S20S PRN PRN Reason: Additional IVPB Infusion Morphine Sulfate (Morphine 2 Mg/Ml Syringe) 2 mg IV Q3H PRN PRN PRN Reason: Pain Score 6-10 Last Admin: 04/02/20 06:32 Dose: 2 mg Documented by: Ondansetron HCl (Ondansetron 4 Mg/2 Ml Vial) 4 mg IV Q8H PRN PRN PRN Reason: NAUSEA/VOMITING Oxycodone HCl (Oxycodone 5 Mg Tablet) 5 mg PO Q4H PRN PRN PRN Reason: Pain Score 4-5 Sodium Chloride (0.9% Saline Lock 10 Ml Syringe) 10 - 40 ml IV UD PRN PRN Reason: SALINE FLUSH Medical Necessity - Tobacco Use Smoking Status: Never smoker Tobacco Use: Non-smoker Assessment/Plan All Active Problems Uncontrolled hypertension (Acute) Acute kidney injury (Acute) UTI (urinary tract infection) (Acute) Kidney stone (Acute) Hypokalemia (Acute) Hypomagnesemia (Acute) Hyponatremia (Acute) 49-year-old male came in with sepsis from obstructing stone. Status post left stent placement. Once stable he can be discharged with antibiotics and he needs to call my office to arrange for outpatient surgery to remove the stone and the stent. Patient was instructed to call my office to arrange next step he understands that the stent needs to be removed otherwise it will cause permanent damage in the kidney.
--- NOTE | 2020-04-03 07:25 | DCINST_ITS ---
Allergies/Adverse Reactions: Allergies No Known Allergies Allergy (Verified 04/01/20 14:52) Medications to take at Discharge NK 04/01/20 Primary Care Physician: Martin Gutierrez MD [Primary Care Provider] - Test Results: Test results from this visit will be discussed in further detail at your follow- up appointment, if applicable. Please Follow Up With: Gary Jang MD - [phone] When: please call to make an appointment.
[2020-04-03 07:26] LABS: Absolute Lymphocyte Count 1.28 X10^3/uL (0.83-4.51); Absolute Neutrophil Count 8.3 X10^3/uL (2.0-7.7); Basophil# 0.01 X10^3/uL; Basophil% 0.1 % (0-1); Eosinophil# 0.03 X10^3/uL; Eosinophils% 0.3 % (0-5); Hematocrit 38.6 % (40-54); Hemoglobin 13.1 g/dL (13.0-16.5); Lymphocyte # 1.28 X10^3/ul (4.0); Lymphocyte % 12.3 % (19-41); Mean Corp Hgb Conc 33.9 g/dL (32-36); Mean Corpuscular Hgb 30.5 pg (27.0-32.0); Mean Corpuscular Volume 89.8 fL (80-94); Monocyte# 0.76 X10^3/uL; Monocyte% 7.3 % (0-10); NRBC Flagged by Analyzer 0 % (0-5); Neutrophil # 8.31 X10^3/uL (2.7-7.7); Neutrophil % 79.5 % (47-70); Platelet Count 158 K/mm3 (150-450); RBC Distribution Width CV 11.8 % (11.6-14.6); RBC Distribution Width SD 38.5 fl (35.1-43.9); White Blood Count 10.4 K/mm3 (4.4-11.0)
[2020-04-03 07:56] LABS: ALB/GLOB Ratio 0.7 RATIO (0.9-2.4); AST(SGOT) 11 U/L (15-37); Alanine Aminotransfer ALT/SGPT 21 U/L (16-61); Albumin, Serum 2.5 g/dL (3.2-5.0); Alkaline Phosphatase 50 U/L (45-117); Anion Gap 5 (5-15); BUN 11 mg/dL (7-18); BUN/Creat Ratio 12.3 RATIO (10-20); Calcium,Total 8.1 mg/dL (8.5-10.1); Chloride 108 mmol/L (98-107); Creatinine, Serum 0.89 mg/dL (0.70-1.30); EST Glomerular Filtration Rate 97 mL/min (>60); Est Glom Filt Rate - Afr Amer 117 mL/min (>60); Estimated Creatinine Clearance 112.62 ml/min; Globulin 3.5 g/dL (2.2-4.2); Glucose 148 mg/dL (74-106); Sodium Level 137 mmol/L (136-145)
[2020-04-03 08:02] VITALS: BP 151/96; PULSE 88; RESP 18; TEMP 36.8; O2SAT 97
[2020-04-03] MEDS: amLODIPine 5 MG Tablet PO (08:12)
[2020-04-03] MEDS: Acetaminophen 325 MG Tablet 650 MG PO (08:12)
--- NOTE | 2020-04-03 12:46 | PCM.DC ---
- Discharge Diagnoses Current Active Problems: Current Active and Chronic Problems Uncontrolled hypertension (Acute) Acute kidney injury (Acute) UTI (urinary tract infection) (Acute) Kidney stone (Acute) Hypokalemia (Acute) Hypomagnesemia (Acute) Hyponatremia (Acute) Hypertension (Chronic) You will use the following diet at home:: No restrictions Your food should be the consistency of: Regular Your liquids should be the consistency of: Regular/Thin Discharge Activity: Return to Normal Activity Return to work on:: 04/06/20 Weight Bearing Status: Full weight bearing Allergies/Adverse Reactions: Allergies No Known Allergies Allergy (Verified 04/01/20 14:52) Medications to take at Discharge Amlodipine [Norvasc] 5 mg PO DAILY #30 tab 04/03/20 Levofloxacin [Levaquin] 750 mg PO DAILY #10 tab 04/03/20 Losartan Potassium 100 mg PO DAILY #30 tab 04/03/20 The following prescriptions were given: Levofloxacin [Levaquin] 750 mg PO DAILY #10 tab Transmission Status: Pending to [facility]/pharmacy #[id number] Losartan Potassium 100 mg PO DAILY #30 tab Transmission Status: Pending to [facility]pharmacy #[id number] Amlodipine [Norvasc] 5 mg PO DAILY #30 tab Transmission Status: Pending to [facility]pharmacy #[id number] Primary Care Physician: Martin Gutierrez MD [Primary Care Provider] - Please follow up with your Primary Care Physician in: in 2 weeks for blood pressure Test Results: Test results from this visit will be discussed in further detail at your follow-up appointment, if applicable. Please Follow Up With: Gary Jang MD - [phone] When: please call to make an appointment.
[2020-04-03 13:02] VITALS: BP 151/91; PULSE 93; RESP 18; TEMP 37.5; O2SAT 98
[2020-04-03 13:24] VITALS: BP 151/91; PULSE 93; RESP 18; TEMP 37.5; O2SAT 98
--- NOTE | 2020-04-05 09:19 | PCM.DC.SUM ---
Discharge Date and Diagnosis - Problem List Patient Problems: Active and Suspected Problems Uncontrolled hypertension (Acute) Acute kidney injury (Acute) UTI (urinary tract infection) (Acute) Kidney stone (Acute) Hypokalemia (Acute) Hypomagnesemia (Acute) Hyponatremia (Acute) Date of Admission: 04/01/20 Date of Discharge: 04/03/20 - Primary Discharge Diagnosis Acute Problems: Active Problems #1 severe sepsis secondary to acute pyelonephritis with E. coli with associated ureteral stone #2 hypokalemia #3 left ureteral stone #4 acute kidney injury #5 essential hypertension #6 elevated bilirubin- secondary to severe sepsis #7 fatty liver - Secondary Discharge Diagnosis Chronic Problems: Chronic Problems Hypertension (Chronic) Hospital Course and Treatment Operations: - - Cystoscopy with placement of left ureteral stent Procedures: None Summary of Care Provided: The patient is a 49 year old M seen in the emergency room at [facility] with a chief complaint of bilateral flank pain and discolored urine. Patient has a history of hypertension but does not take any medications due to side effects. Work-up in the emergency room revealed an elevated white blood cell count, patient's potassium was low, his bilirubin was elevated, and his creatinine was elevated. Patient had a urinalysis which indicated he had a urinary tract infection, CT of the abdomen and pelvis without contrast showed a 4 mm ureteral stone in the left ureter. Patient was given IV antibiotics in the emergency room, IV fluids, and urology was contacted and agreed to see the patient in consultation. Patient was admitted to [place] [address], he was felt to have severe sepsis, antibiotics were continued, fluids were continued, patient was placed on hypertensive medication. Patient was seen by urology and underwent placement of a ureteral stent in the left ureter, laser lithotripsy was not carried out due to the patient's septic condition. Patient improved during his hospital stay. Urine culture was positive for E. coli as was his blood culture. On 04/03/2020, patient was seen and examined: On examination he appeared in good health and spirits. Vital signs as documented. Skin warm and dry and without overt rashes. Neck without JVD, neck was supple, trachea midline, thyroid was normal. Lungs clear bilaterally, normal air movement was noted. Heart exam notable for regular rhythm, normal sounds and absence of murmurs, rubs or gallops. Abdomen unremarkable and without evidence of organomegaly, masses, or abdominal aortic enlargement. Bowel sounds are present, abdomen is not distended. Extremities nonedematous, no cyanosis was noted, no clubbing was noted. Neuro: Cranial nerves II through XII are grossly intact, no focal motor deficits were noted, sensation to light touch and pinprick intact, motor exam 5/5 throughout. Psych: Patient is alert and oriented x3, he does not appear anxious or depressed, he does not appear agitated. On 04/03/2020, patient was seen and examined and felt in stable condition for discharge home Patient Problems: Active and Suspected Problems Uncontrolled hypertension (Acute) Acute kidney injury (Acute) UTI (urinary tract infection) (Acute) Kidney stone (Acute) Hypokalemia (Acute) Hypomagnesemia (Acute) Hyponatremia (Acute) - Physical Exam Vitals/I&O's: Vital Signs Temp Pulse Resp BP Pulse Ox 99.5 F H 93 18 151/91 H 98 04/03/20 13:24 04/03/20 13:24 04/03/20 13:24 04/03/20 13:24 04/03/20 13:24 Oxygen Delivery Method Room Air Weight: 119 kg Body Mass Index (BMI) 34.9 Finger Stick Blood Glucose 170 Intake and Output for Last 24 Hours 04/03/20 04/04/20 04/05/20 23:59 23:59 23:59 Intake Total 3565 / 3565 Balance 3565 / 3565 Microbiology Past 72 Hours 04/01/20 18:50 Blood Culture (Wb) - Anticubital Left Blood Culture - Preliminary No growth in 48 hours. 04/01/20 18:50 Blood Culture (Wb) - Anticubital Right Blood Culture - Final Escherichia coli 04/01/20 16:00 Urine, Clean Catch Urine Culture - Final Presumptive E. coli Discharge Activity: Return to Normal Activity Return to work on:: 04/06/20 Weight Bearing Status: Full weight bearing Home Medications: Medications to take at Discharge Amlodipine [Norvasc] 5 mg PO DAILY #30 tab 04/03/20 Levofloxacin [Levaquin] 750 mg PO DAILY #10 tab 04/03/20 Losartan Potassium 100 mg PO DAILY #30 tab 04/03/20 Following Prescriptions Were Given to Patient: Levofloxacin [Levaquin] 750 mg PO DAILY #10 tab Transmission Status: Received by [facility]/pharmacy #[id number] Losartan Potassium 100 mg PO DAILY #30 tab Transmission Status: Received by [facility]pharmacy #[id number] Amlodipine [Norvasc] 5 mg PO DAILY #30 tab Transmission Status: Received by [facility]pharmacy #[id number] Primary Care Physician: Martin Gutierrez MD [Primary Care Provider] - Please follow up with your Primary Care Physician in: in 2 weeks for blood pressure Please Follow Up With: Gary Jang MD - [phone] When: please call to make an appointment. Disposition: Home Minutes spent on discharge:: 31 Patient Condition:: Stable Medical Necessity - Tobacco Use Smoking Status: Never smoker Tobacco Use: Non-smoker Meaningful Use Info Meaningful Use Diagnoses (Choose all that apply): None applicable Inpatient E&M: [id number] Disch Hosp
== END 2020-04-03 13:23 | disposition home or self-care (01) | DRG 854 ==
LOC: ED 16:30 → MS3 04-02 06:59
PROVIDERS: Emergency Medicine; Urology; Admitting Provider Internal Medicine; Emergency Provider Student in an Organized Health Care Education/Training Program; PCP Family Medicine; Visit Provider Internal Medicine
PROC: 0T778DZ Dilation of Left Ureter with Intraluminal Device, Via Natural or Artificial Opening Endoscopic (ICD-10-PCS; CPT 52332; principal; 2020-04-02 14:00)
DX: A41.9 Sepsis, unspecified organism (principal); N13.2 Hydronephrosis with renal and ureteral calculous obstruction; E87.1 Hypo-osmolality and hyponatremia; N39.0 Urinary tract infection, site not specified; N17.9 Acute kidney failure, unspecified; N10 Acute pyelonephritis; B96.20 Unspecified Escherichia coli [E. coli] as the cause of diseases classified elsewhere; E83.42 Hypomagnesemia; E86.0 Dehydration; E87.6 Hypokalemia; I10 Essential (primary) hypertension; R65.20 Severe sepsis without septic shock; K76.0 Fatty (change of) liver, not elsewhere classified; Z91.14 Patient's other noncompliance with medication regimen
CPT/HCPCS: 36415; 74176; 76000; 76705; 80053; 81001; 82009; 83605; 83735; 85025; 87040; 87077; 87086; 87088; 87186; 87426; 93005; 99251; 99284; J7030; J7120; A4216; C1769; C2617; G0463

== ENCOUNTER 2020-04-16 10:37 | Day surgery (SDC) | payer SELFPAY ==
[2020-04-02 10:11] VITALS: BMI 34.9
[2020-04-16] VITALS (7 sets, daily range): BP systolic 141–159; BP diastolic 93–110; PULSE 85–102; RESP 16–18; TEMP 36.2–36.8; O2SAT 95–99; BMI 34.0
--- NOTE | 2020-04-16 07:50 | PCM.HP.STD ---
Problem List (1) Left ureteral calculus Status: Acute History of Present Illness Date of Admission: 04/16/20 The patient is a 49 year old male who underwent cystoscopy and left stent placement for obstructing stone in the left mid ureter he now presents the hospital for left ureteroscopy and laser of the stone. Past Medical History Past Medical History (Chronic Problems): Chronic Problems Hypertension (Chronic) Allergies No Known Allergies Allergy (Verified 04/11/20 14:32) Home Medications: Ambulatory Orders Medication Instructions Recorded Amlodipine [Norvasc] 5 mg PO DAILY #30 tab 04/03/20 Levofloxacin [Levaquin] 750 mg PO DAILY #10 tab 04/03/20 Losartan Potassium 100 mg PO DAILY #30 tab 04/03/20 Surgical History: appendectomy, cholecystectomy, herniorrhaphy - left inguinal Psychiatric History: No pertinent psych hx Smoking Status: Never smoker - *Family History Maternal History Items: Unknown Paternal History Items: Unknown Review of Systems Constitutional: Denies: Chills, Fever, Weight Change HEENT: Denies: Head Aches, Sinus Congestion, Sinus Drainage Cardiovascular: Denies: Chest Pain, Palpitations Respiratory: Denies: Cough, Shortness of breath at rest, Sputum production Gastrointestinal: Denies: Abdominal Pain, Nausea, Vomiting Genitourinary: Denies: Dysuria Musculoskeletal: Denies: Joint Pain, Joint Tenderness Skin: Denies: Rash, Wounds Neurological: Denies: Numbness, Tingling, Focal weakness Psychiatric: Denies: Anxiety, Depression, Homicidal Ideations, Suicidal Ideations Hematologic/ Lymphatic: Denies: Easy Bruising, Easy Bleeding VTE Information - Inpt Only VTE Present on Admission: No - Physical Exam Vitals/I&O's: Body Mass Index (BMI) 34.9 Finger Stick Blood Glucose 170 General: Alert, Oriented x3, Cooperative HEENT: Atraumatic, PERRLA, EOMI, Normocephalic Neck: Supple, No JVD, Negative Carotid Bruits Lungs: Clear to auscultation, Normal air movement Cardiovascular: Regular rate, No murmurs Abdomen: Bowel Sounds Present, Soft, Non Tender Extremities: No edema, Capillary Refill Less than 3 Seconds Skin: No rashes, No breakdown Musculoskeletal: No Tenderness to Palpation of Joints or Extremities Neurological: Cranial nerves II-XII grossly intact Psych/Mental Status: Normal Affect, Appropriate Microbiology Past 72 Hours 04/15/20 14:20 Interface Orders SARS-CoV-2 Antigen (Rapid) - Final Assessment/Plan All Active Problems Uncontrolled hypertension (Acute) Acute kidney injury (Acute) UTI (urinary tract infection) (Acute) Kidney stone (Acute) Hypokalemia (Acute) Hypomagnesemia (Acute) Hyponatremia (Acute) Left ureteral calculus (Acute) Plan to proceed with left ureteroscopy and laser of the stone possible stent.
--- NOTE | 2020-04-16 11:22 | DCINST_ITS ---
Discharge Diet: Light diet - advance as tolerated Discharge Activity: Return to Normal Activity Call your doctor if you observe: Fever of 101 or Higher Suture Line Care: Avoid Pulling/Pushing, Avoid Pinching/Bending Allergies/Adverse Reactions: Allergies No Known Allergies Allergy (Verified 04/16/20 11:05) Medications to take at Discharge Amlodipine [Norvasc] 5 mg PO DAILY #30 tab 04/03/20 Levofloxacin [Levaquin] 750 mg PO DAILY #10 tab 04/03/20 Losartan Potassium 100 mg PO DAILY #30 tab 04/03/20 Primary Care Physician: Martin Gutierrez MD [Primary Care Provider] - Test Results: Test results from this visit will be discussed in further detail at your follow- up appointment, if applicable. Please Follow Up With: Gary Jang MD When: in 2 weeks, please call to make an appointment.
[2020-04-16] MEDS: Lactated Ringers 1,000 ML 75 ML IV (11:31)
[2020-04-16] MEDS: Cefazolin 2 GM in 0.9% Normal Saline 100 ML IV (13:38)
--- NOTE | 2020-04-16 14:14 | PCM.OPRPT ---
Problem List (1) Left ureteral calculus Status: Acute Report of Operation Date of Procedure: 04/16/20 Pre-Operative Diagnosis: Status post stent for left obstructing stone and sepsis Post-Operative Diagnosis: Same Description of Surgical Findings:: This is a patient who presents to the hospital for treatment for an obstructing distal ureter calculi. I discussed with the patient how the surgery would be performed and we reviewed the risks and benefits of the surgery. The risk and benefits include the risk of failure to remove the stone completely and that the patient may need multiple procedures. We discussed the risk of an infection, the risk of bleeding. We discussed the very rare risk of serious complicated injury to the ureter. The patient understands that if the stone is not able to be removed safely that we may abort the procedure and place a stent. After full discussion and all questions address with the patient the consent form was signed the side was marked appropriately and the patient was taken back to the operating room for the procedure. The patient was taken back to the operating room. After induction of anesthesia by the anesthesiology team the patient was placed in dorsolithotomy position. The genitals were prepped and draped in usual sterile fashion. I went into the bladder with a 21 [place] rigid cystourethroscope through the urethra. Upon entering the bladder I inspected the trigone the left and right ureteral orifice and the bladder itself. I then grabbed the existing stent from the left side and removed it. I then cannulated the left ureteral orifice and advanced a 0.038 Glidewire up into the kidney. Then over the Glidewire I advanced a 5 Fr Ureteral catheter and performed a retrograde pyelogram with about 10cc of contrast, to delineate the anatomy and identify the stone location. I then placed a second 0.038 Guidewire as a working wire and over the working 0.038 guidewire I went in with the flexible 7.5fr ureteroscope. I was able to go inside with the 7.5Fr utereroscope and I pulled out the working guidewire and then through the 7.5 fr ureteroscope I engage the stone in the mid ureter with laser lithotripsy using a 270miron laser fiber with energy setting of 6 Hertz and 0.6 J until the stone was lasered into tiny little pieces that should pass on their own. A retrograde pyelogram was performed with 10cc of contrast and no extravasation of contrast or perforation was identified in the ureter there was some mild irritation of the ureter where the stone was located. I then backed out of the ureter left the wire in place and then over the 0.038 guidewire.6 I then drained the patient's bladder and the cystoscope was removed and the patient was taken back to the recovery room in good position. The patient was given discharge instructions to call the office for instructions on when to come to the office for follow up. Type of Anesthesia:: General Drains: none - Admit VTE Documentation VTE Present on Admission: No
[2020-04-16] MEDS: Ketorolac 15 MG/ML Vial IV (14:35)
== END 2020-04-16 15:43 | disposition home or self-care (01) ==
LOC: SDC 10:46 → AC 10:48
PROVIDERS: PCP Family Medicine; Referring Provider Urology; Visit Provider Urology
PROC: 0TJ98ZZ Inspection of Ureter, Via Natural or Artificial Opening Endoscopic (ICD-10-PCS; CPT 52352; principal; 2020-04-16 12:45)
DX: N13.2 Hydronephrosis with renal and ureteral calculous obstruction (principal); I10 Essential (primary) hypertension; Z87.440 Personal history of urinary (tract) infections; Z87.442 Personal history of urinary calculi; Z79.899 Other long term (current) drug therapy
CPT/HCPCS: 00918; 52353; 76000; 87426; C9803; J7120; C1769; J2405

== ENCOUNTER → 2021-01-20 11:31 | Outpatient (CLI) | payer SELFPAY ==
[2021-01-20 15:36] LABS: Hemoglobin A1c 6.2 % (3.8-5.6)
[2021-01-20 15:38] LABS: Anion Gap 8 (5-15); BUN 10 mg/dL (7-18); BUN/Creat Ratio 9.2 RATIO (10-20); Calcium,Total 9.1 mg/dL (8.5-10.1); Chloride 103 mmol/L (98-107); Creatinine, Serum 1.09 mg/dL (0.70-1.30); EST Glomerular Filtration Rate 77 mL/min (>60); Est Glom Filt Rate - Afr Amer 93 mL/min (>60); Glucose 141 mg/dL (74-106); Potassium 3.5 mmol/L (3.5-5.1); Sodium Level 141 mmol/L (136-145)
== END ==
PROVIDERS: PCP Family Medicine; Referring Provider Family Medicine; Visit Provider Family Medicine
DX: E11.9 Type 2 diabetes mellitus without complications (principal); I10 Essential (primary) hypertension
CPT/HCPCS: 36415; 80048; 83036

== ENCOUNTER → 2022-01-15 | Outpatient (CLI) | payer SELFPAY ==
[2022-01-15 18:35] LABS: Anion Gap 10 (5-15); BUN 11 mg/dL (7-18); BUN/Creat Ratio 9.2 RATIO (10-20); Calcium,Total 9.8 mg/dL (8.5-10.1); Chloride 98 mmol/L (98-107); EST Glomerular Filtration Rate 68 mL/min (>60); Est Glom Filt Rate - Afr Amer 83 mL/min (>60); Glucose 129 mg/dL (74-106); Potassium 3.6 mmol/L (3.5-5.1); Sodium Level 134 mmol/L (136-145)
== END | disposition home or self-care (01) ==
PROVIDERS: PCP Family Medicine; Referring Provider Family Medicine; Visit Provider Family Medicine
DX: E11.9 Type 2 diabetes mellitus without complications (principal)
CPT/HCPCS: 36415; 80048

== ENCOUNTER 2023-05-13 15:49 | Outpatient (CLI) | payer SELFPAY ==
[2023-05-13 18:08] LABS: Anion Gap 5 (5-15); BUN 11 mg/dL (7-18); BUN/Creat Ratio 11.1 RATIO (10-20); Calcium,Total 9.5 mg/dL (8.5-10.1); Chloride 104 mmol/L (98-107); Cholesterol 152 mg/dL (200); Creatinine, Serum 0.99 mg/dL (0.70-1.30); EST Glomerular Filtration Rate 84 mL/min (>60); Est Glom Filt Rate - Afr Amer 102 mL/min (>60); Glucose 118 mg/dL (74-106); Hemoglobin A1c 6.9 % (3.8-5.6); High Density Lipoprotein 28 mg/dL; Potassium 3.9 mmol/L (3.5-5.1); Sodium Level 135 mmol/L (136-145); Triglycerides 197 mg/dL; Very Low Density Lipoprotein 39 mg/dL (5-40)
== END 2023-05-13 23:59 | disposition home or self-care (01) ==
PROVIDERS: PCP Family Medicine; Referring Provider Family Medicine; Visit Provider Family Medicine
DX: Z00.00 Encounter for general adult medical examination without abnormal findings (principal); Z12.5 Encounter for screening for malignant neoplasm of prostate
CPT/HCPCS: 36415; 80048; 80061; 83036; 84153; 84403; G0103

== ENCOUNTER → 2024-03-02 | Outpatient (CLI) | payer SELFPAY ==
--- NOTE | 2024-03-02 16:39 | RAD_ITS ---
EXAM: XR RIGHT HIP WITH PELVIS WHEN PERFORMED, 2 OR 3 VIEWS CLINICAL INDICATION: RT HIP PAIN TECHNIQUE: Two or three views of the right hip with pelvis when performed. COMPARISON: No relevant prior studies available. FINDINGS: BONES/JOINTS: Unremarkable. No displaced fracture. No destructive or sclerotic lesions. Note that overlapping bowel shadows may however obscure fine detail. Sacroiliac joint is unremarkable. No widening of the pubic symphysis. The articular structures are unremarkable. SOFT TISSUES: Unremarkable. No soft tissue swelling or gas. RAD/HIP, UNI W/ Pelvis 2-3 Views IMPRESSION: No evidence of displaced pelvic or hip fracture. Electronically Signed: Krystian Montoya MD at 17:59 EST ,
--- NOTE | 2024-03-02 16:40 | RAD_ITS ---
INDICATION: BACK PAIN EXAMINATION/TECHNIQUE: X-RAY - XR Spine Lumbar Min 4 Views COMPARISON: No relevant prior comparison study available FINDINGS: VERTEBRAE: Preserved vertebral body height. No fracture. No spondylolisthesis. Preservation of the normal lumbar lordosis. Mild lower facet arthropathy. DISCS: Disc spaces are maintained. Tiny endplate osteophytes noted throughout. INCLUDED ABDOMEN: Included bowel gas pattern is non-obstructive. RAD/L/S Spine Min 4 Views IMPRESSION: No evidence of lumbar spinal fracture or spondylolisthesis. Mild degenerative change. Electronically Signed: Gomez Weinberg MD at 11:58 EST ,
== END | disposition home or self-care (01) ==
PROVIDERS: PCP Family Medicine; Referring Provider Family Medicine; Visit Provider Family Medicine
DX: M25.551 Pain in right hip (principal); M54.9 Dorsalgia, unspecified
CPT/HCPCS: 72110; 73502